=== PATIENT | female | born 1945 | race Hispanic/Latino ===

== ENCOUNTER → 2019-06-29 | Outpatient (CLI) | payer OTHER ==
[~2019-06-29] MED LIST: ASPI-555 PO; CALC-724 PO; CELE-84 PO; CEVI30CA7 PO; CHOL50009 PO; FERR325T29 PO; FOLI1TAB15 PO; GABA-529 PO; HYDR200T4 PO; LEVO100T12 PO; LOSA100T58 PO; METO25TA6 PO; MV-M1TAB46 PO; OMEP40CA13 PO; PRED5TAB PO; ROSU10TA28 PO; TEMA15CA PO; VITA-380 PO
== END | disposition home or self-care (01) ==
LOC: RAH 15:25
PROVIDERS: ATTEND Nurse Practitioner Adult Health
DX: M51.36 Other intervertebral disc degeneration, lumbar region (principal); M41.85 Other forms of scoliosis, thoracolumbar region
CPT/HCPCS: 72100

== ENCOUNTER → 2019-07-15 | Outpatient (CLI) | payer OTHER | END | disposition home or self-care (01) | LOC: RAH 12:44 | PROVIDERS: ATTEND Nurse Practitioner Adult Health | DX: M16.12 Unilateral primary osteoarthritis, left hip (principal); R10.2 Pelvic and perineal pain | CPT/HCPCS: 72170; 73502 ==

== ENCOUNTER → 2019-08-12 | Outpatient (CLI) | payer OTHER | END | disposition home or self-care (01) | LOC: RAH 11:16 | PROVIDERS: ATTEND Nurse Practitioner Adult Health | DX: J43.1 Panlobular emphysema (principal); J98.11 Atelectasis; J84.10 Pulmonary fibrosis, unspecified; J98.4 Other disorders of lung; K76.89 Other specified diseases of liver; M47.819 Spondylosis without myelopathy or radiculopathy, site unspecified; M41.80 Other forms of scoliosis, site unspecified; K44.9 Diaphragmatic hernia without obstruction or gangrene; K22.8 Other specified diseases of esophagus; J92.9 Pleural plaque without asbestos | CPT/HCPCS: 71250 ==

== ENCOUNTER → 2020-10-30 | Outpatient (CLI) | payer MEDICARE ==
[~2020-10-30] MED LIST changes: -ASPI-555 PO; +ASPI-556 PO; +CALC-1158 PO; -CALC-724 PO
== END | disposition home or self-care (01) ==
LOC: RAH 12:53
PROVIDERS: ATTEND Nurse Practitioner Adult Health
DX: I73.9 Peripheral vascular disease, unspecified (principal)
CPT/HCPCS: 93922

== ENCOUNTER → 2021-01-10 | Outpatient (CLI) | payer MEDICARE | END | disposition home or self-care (01) | LOC: RAH 12:52 | PROVIDERS: ATTEND Nurse Practitioner Adult Health | DX: R05 Cough (principal); K76.89 Other specified diseases of liver | CPT/HCPCS: 71250 ==

== ENCOUNTER → 2021-01-24 | Outpatient (CLI) | payer MEDICARE | END | disposition home or self-care (01) | LOC: RAH 09:06 | PROVIDERS: ATTEND Otolaryngology Plastic Surgery within the Head & Neck | DX: K22.5 Diverticulum of esophagus, acquired (principal); R22.9 Localized swelling, mass and lump, unspecified; K22.2 Esophageal obstruction | CPT/HCPCS: 74220 ==

== ENCOUNTER → 2021-12-24 | Outpatient (CLI) | payer OTHER ==
[~2021-12-24] MED LIST changes: -OMEP40CA13 PO; +OMEP40CA21 PO
== END ==
LOC: RAH 11:16
PROVIDERS: ATTEND Nurse Practitioner Adult Health
DX: Z13.6 Encounter for screening for cardiovascular disorders (principal); I51.5 Myocardial degeneration
CPT/HCPCS: 75571

== ENCOUNTER → 2023-02-21 | Outpatient (CLI) | payer MEDICARE ==
[~2023-02-21] MED LIST changes: -HYDR200T4 PO; +HYDR200T75 PO; -LOSA100T58 PO; +LOSA100T59 PO
== END | disposition home or self-care (01) ==
LOC: SHCH 12:46
PROVIDERS: ATTEND Internal Medicine Cardiovascular Disease
DX: I11.9 Hypertensive heart disease without heart failure (principal); I34.0 Nonrheumatic mitral (valve) insufficiency; I27.20 Pulmonary hypertension, unspecified
CPT/HCPCS: 93306

== ENCOUNTER → 2023-03-06 | Outpatient (CLI) | payer MEDICARE ==
[~2023-03-06] MED LIST changes: +REGADENOSON 0.4 MG/5 ML PF SYG IVP ONE
== END | disposition home or self-care (01) ==
LOC: SHCH 08:57
PROVIDERS: ATTEND Internal Medicine Cardiovascular Disease
DX: R06.02 Shortness of breath (principal); G89.29 Other chronic pain; M79.605 Pain in left leg; I10 Essential (primary) hypertension; E78.5 Hyperlipidemia, unspecified; Z79.899 Other long term (current) drug therapy
CPT/HCPCS: 78452; 96374; 93017; J2785; A9500 ×2

== ENCOUNTER 2023-04-08 08:51 | Day surgery (SDC) | payer MEDICARE ==
[2023-04-06 10:51] VITALS: BP 146/76; PULSE 76; RESP 18
[2023-04-06 10:54] LABS: BASOPHILS # (AUTO) 0.05 K/uL (0.00-0.20); EOSINOPHILS # (AUTO) 0.06 K/uL (0.00-0.70); EOSINOPHILS % (AUTO) 1.2 % (0.0-8.0); IMMATURE GRANULOCYTE ABSOLUTE 0.04 K/uL (0-1); LYMPHOCYTES # (AUTO) 1.9 K/uL (1.0-4.8); MEAN CORPUSCULAR HEMOGLOBIN 32.2 pg (27.0-33.0); MEAN CORPUSCULAR HGB CONC 33.1 g/dL (32.0-36.0); MEAN CORPUSCULAR VOLUME 97.2 fL (79-99); MONOCYTES # (AUTO) 0.6 K/uL (0.1-1.0); MONOCYTES % (AUTO) 11.2 % (3.0-13.0); NEUTROPHILS # (AUTO) 2.6 K/uL (1.8-7.7); NEUTROPHILS % (AUTO) 49.8 % (40.0-77.0); NUCLEATED RED BLOOD CELLS 0.4 % (0.0-0.19); PLATELET COUNT (AUTO) 247 K/uL (130-400); RED CELL DISTRIBUTION WIDTH 13.8 % (11.0-15.5); WHITE BLOOD COUNT (AUTO) 5.2 K/uL (4.8-10.8)
[2023-04-06 10:56] LABS: APPEARANCE,URINE CLEAR (CLEAR); BILIRUBIN,URINE NEGATIVE (NEGATIVE); COLOR,URINE YELLOW (YELLOW); GLUCOSE, URINE (UA) NEGATIVE (NEGATIVE); KETONES,URINE NEGATIVE (NEGATIVE); LEUKOCYTE ESTERASE ,URINE 75 Leu/uL (NEGATIVE); NITRATE,URINE NEGATIVE (NEGATIVE); OCCULT BLOOD,URINE NEGATIVE (NEGATIVE); PH,URINE 5.5 (5.0-8.0); PROTEIN,URINE 30 mg/dL (NEGATIVE); UROBILINOGEN,URINE 0.2 mg/dL (0.2-1.0)
[2023-04-06 11:07] LABS: INR 0.93 (0.85-1.15); PROTHROMBIN TIME 10.6 SEC (9.6-11.6)
[2023-04-06 11:08] LABS: PARTIAL THROMBOPLASTIN TIME 27.3 SEC (26.3-35.5)
[2023-04-06 11:12] LABS: B-TYPE NATRIURETIC PEPTIDE 48 pg/mL (0-100)
[2023-04-06 11:13] LABS: CREATININE 1.4 mg/dL (0.5-1.5)
[2023-04-06 11:16] LABS: ADD UA MICROSCOPIC YES
[2023-04-06 12:02] LABS: HYALINE CASTS, URINE 26-50 /LPF (0-1 /LPF); MUCUS,URINE RARE LPF (None Seen); SQUAMOUS EPITHELIAL CELL,UR RARE /HPF (0-2)
[~2023-04-08] VITALS: Ht 160 cm; Wt 71.9 kg
[2023-04-08] VITALS (11 sets, daily range): BP systolic 117–150; BP diastolic 49–75; PULSE 61–81; RESP 14–17
[~2023-04-08 08:51] MED LIST changes: +ACET-2743 PO; +AMLO2.5T4 PO; -ASPI-556 PO; +BIOT10005 PO; +CALC-1125 PO; -CALC-1158 PO; -CELE-84 PO; +CELE200C PO; +CHOL2000 PO; -CHOL50009 PO; +ELUX75TA PO; +ESCI-8 PO; -FERR325T29 PO; +FOLI0.4T6 PO; -FOLI1TAB15 PO; -GABA-529 PO; +GABA600T10 PO; +IRON PEG; -LEVO100T12 PO; +LEVO75CA5 PO; -LOSA100T59 PO; +METO-408 PO; -METO25TA6 PO; -MV-M1TAB46 PO; +OMEP-272 PO; -OMEP40CA21 PO; -PRED5TAB PO; +PREVAGEN PO; -REGADENOSON 0.4 MG/5 ML PF SYG IVP ONE; -TEMA15CA PO; +UPAD15TA PO; -VITA-380 PO; +VITA-395 PO; +VITA0.4T20 PO; +ZINC220T4 PO
[2023-04-08] MEDS ORDERED: IOPAMIDOL-370 100 ML VIAL IV ONE (08:52)
[2023-04-08] MEDS ORDERED: MIDAZOLAM HCL 1 MG/ML 2ML VIAL ONE ×2 (10:39→11:13)
[2023-04-08] MEDS ORDERED: LIDOCAINE HCL 400MG/20ML VIAL ONE (10:39)
[2023-04-08] MEDS ORDERED: MEPERIDINE-PF 25 MG/ML SYG ONE ×2 (10:39→11:13)
[2023-04-08] MEDS ORDERED: NITROGLYCERIN 50MG VIAL ONE (10:40)
[2023-04-08] MEDS ORDERED: NICARDIPINE 25MG INJ IV ONE (10:40)
[2023-04-08] MEDS ORDERED: HEPARIN 10,000 UNIT/10ML (1,000 UNIT/ML) VIAL ONE (10:40)
== END 2023-04-08 17:29 | disposition home or self-care (01) ==
LOC: DAH 08:51
PROVIDERS: ATTEND Internal Medicine Cardiovascular Disease
DX: Z01.810 Encounter for preprocedural cardiovascular examination (principal); I25.119 Atherosclerotic heart disease of native coronary artery with unspecified angina pectoris; I11.0 Hypertensive heart disease with heart failure; I50.32 Chronic diastolic (congestive) heart failure; E78.5 Hyperlipidemia, unspecified; M06.9 Rheumatoid arthritis, unspecified; K21.9 Gastro-esophageal reflux disease without esophagitis; E03.9 Hypothyroidism, unspecified; M81.0 Age-related osteoporosis without current pathological fracture; M35.00 Sjogren syndrome, unspecified; Z79.01 Long term (current) use of anticoagulants; Z80.9 Family history of malignant neoplasm, unspecified; Z90.710 Acquired absence of both cervix and uterus; Z90.49 Acquired absence of other specified parts of digestive tract; Z98.890 Other specified postprocedural states; Z98.51 Tubal ligation status; Z79.899 Other long term (current) drug therapy
CPT/HCPCS: 80048; 83880; 85025; 85610; 85730; 87088; 81001; 36415; 71045; 93005; 93458; C1894 ×2; C1760; Q9967; J3490 ×3; J2250 ×2; J2175 ×2; J1644; A4215; A4222; A4221; A4663; A4216; A4606; A4223 ×3; 99156; 99157

== ENCOUNTER → 2023-06-24 | Outpatient (CLI) | payer MEDICARE ==
[~2023-06-24] MED LIST changes: +ALBUTEROL 0.083% 2.5 MG/3 ML INH IH ONE
== END | disposition home or self-care (01) ==
LOC: RESP 08:37
PROVIDERS: ATTEND Internal Medicine Cardiovascular Disease
DX: R06.02 Shortness of breath (principal); R06.00 Dyspnea, unspecified
CPT/HCPCS: 94060

== ENCOUNTER → 2023-07-21 | Outpatient (CLI) | payer MEDICARE ==
[~2023-07-21] MED LIST changes: -ALBUTEROL 0.083% 2.5 MG/3 ML INH IH ONE
[2023-07-21 22:29] VITALS: PULSE 72; RESP 16
[2023-07-21 22:59] VITALS: PULSE 88; RESP 14
[2023-07-21 23:33] VITALS: PULSE 69; RESP 10
[2023-07-22] VITALS (11 sets, daily range): PULSE 69–94; RESP 10–18
== END | disposition home or self-care (01) ==
LOC: SLP 19:54
PROVIDERS: ATTEND Internal Medicine Cardiovascular Disease
DX: G47.33 Obstructive sleep apnea (adult) (pediatric) (principal)
CPT/HCPCS: 95810

== ENCOUNTER → 2023-07-28 | Outpatient (CLI) | payer MEDICARE ==
[2023-07-28 21:44] VITALS: PULSE 70; RESP 14
[2023-07-28 22:39] VITALS: PULSE 67; RESP 7
[2023-07-28 23:15] VITALS: PULSE 67; RESP 10
[2023-07-28 23:23] VITALS: PULSE 69; RESP 11
[2023-07-28 23:38] VITALS: PULSE 68; RESP 9
[2023-07-29] VITALS (11 sets, daily range): PULSE 68–74; RESP 9–27
== END | disposition home or self-care (01) ==
LOC: SLP 20:16
PROVIDERS: ATTEND Internal Medicine Cardiovascular Disease
DX: G47.33 Obstructive sleep apnea (adult) (pediatric) (principal)
CPT/HCPCS: 95811

== ENCOUNTER → 2024-08-23 | Outpatient (CLI) | payer MEDICARE ==
[~2024-08-23] MED LIST changes: -CELE200C PO; +CELE200C3 PO; +GABA-1405 PO; -GABA600T10 PO; -ROSU10TA28 PO; +ROSU10TA72 PO
--- NOTE | 2024-08-23 17:23 | HMCSR ---
APPROVED REPORT EXAM: Two-dimensional and M-mode echocardiogram with Doppler and color Doppler. INDICATION ICD: R06.00 Dyspnea 2D Dimensions RVDd3.0 cmLVEF(%)64.8 (>50%)LVED Vol(simp.)68.0 mL IVSd1.0 (0.7-1.1cm)FS(%)35 %LVES Vol(simp.)26.0 mL LVDd4.1 (3.8-5.6cm)Ao Root(2D)2.6 (2.0-3.7cm)LVEF(%, simp.)62 % PWd1.0 (0.7-1.1cm)LVOT diam1.8 (1.8-2.4cm)LA ESV INDEX (BP)35.97 mL/m2 LVDs2.6 (2.5-4.0cm)IVC diam1.8 cm Aortic Valve AoV Vmax1.5 m/Nerissa Peak GR9.0 mmHgLVOT Vmax1.2 m/s AoV VTI0.3 mAo Mean GR4.9 mmHgLVOT VTI0.27 m CHAMP (VMAX)2.1 cm2AVA (VTI) 2.1 cm2 Mitral Valve MV E Vmax82.5 cm/sDECEL Lydm766 ms MV A Vufb310.0 cm/sP 1/2 T63 ms E/A ratio0.8MVA (PHT)3.5 cm2 MR Max PG77 mmHg TDI E/E' Adziou24.3E/E' Qasfrrw29.6 Pulmonary Valve PV Vmax1.2 m/sPV VTI0.26 mPV Mean GR4 mmHg PV Peak GR5.4 mmHg Tricuspid Valve TR Vmax2.9 m/sRAP (EST) 8 wpEcETIZ45.6 mmHg TR Peak GR34.6 mmHg Left Ventricle Left ventricular cavity size is normal. There is normal LV segmental wall motion. There is normal lef t ventricular wall thickness. LVEF is 60-65%. No left ventricle thrombus noted on this study. Grade 1 diastolic dysfunction. Right Ventricle The right ventricle is normal size. The right ventricular systolic function is normal. Atria The left atrium is mildly dilated. The right atrium size is normal. Aortic Valve Aortic valve is trileaflet. Aortic valve leaflets are sclerotic but open well. Trace aortic regurgita tion. There is no aortic valvular stenosis. Mitral Valve Mitral valve leaflets are mildly sclerotic but open well. Mitral regurgitation is trace. There is no mitral valve stenosis. Tricuspid Valve The tricuspid valve leaflets appear normal. There is mild to moderate tricuspid regurgitation. Right ventricular systolic pressure is estimated at 40-50 mmHg. Pulmonic Valve Pulmonic valve is not well visualized. Great Vessels The aortic root is normal in size. IVC is dilated and collapses >50% with inspiration. Pericardium No pericardial effusion. Conclusion Left ventricular cavity size is normal. LVEF is 60-65%. Grade 1 diastolic dysfunction. The right ventricle is normal size. The left atrium is mildly dilated. Aortic valve is trileaflet. Aortic valve leaflets are sclerotic but open well. Trace aortic regurgitation. Mitral valve leaflets are mildly sclerotic but open well. Mitral regurgitation is trace. There is mild to moderate tricuspid regurgitation. Right ventricular systolic pressure is estimated at 40-50 mmHg. The aortic root is normal in size. IVC is dilated and collapses >50% with inspiration. No pericardial effusion.
== END | disposition home or self-care (01) ==
LOC: SHCH 11:01
PROVIDERS: ATTEND Internal Medicine Cardiovascular Disease
DX: I08.3 Combined rheumatic disorders of mitral, aortic and tricuspid valves (principal); R06.00 Dyspnea, unspecified
CPT/HCPCS: 93306

== ENCOUNTER → 2024-11-21 | Outpatient (CLI) | payer MEDICARE ==
[~2024-11-21] MED LIST changes: +GADOTERATE MEGLUMINE 10 MMOL/20 ML VIAL IV ONE
--- NOTE | 2024-11-21 16:09 | HMCIMG ---
MR ABDOMEN W/WO CON HISTORY: Liver cysts COMPARISON: CT from April 08, 2017 TECHNIQUE: MRI of the abdomen was performed utilizing multiple pulse sequences in axial, coronal and sagittal planes. Patient was given 13 cc of Clariscan through intravenous route. FINDINGS: No pleural effusion is seen bilaterally. There are right hepatic cysts near the dome of diaphragm with the largest measuring 17 mm. There is left hepatic cyst measuring 2 cm. Sludge material is seen in the gallbladder. No definite gallstone is seen. Common duct is dilated measuring 11 mm with sludge material. Small distal common duct stone suspected. Spleen, adrenal glands and pancreas are unremarkable. Both kidneys are seen without hydronephrosis. There are bilateral renal cortical scarring. There is no ascites. IMPRESSION: 1. , There is dilated with possible small distal common duct stone. Hepatic cysts. No ascites.
== END | disposition home or self-care (01) ==
LOC: RAH 14:02
PROVIDERS: ATTEND Internal Medicine Gastroenterology
DX: K76.89 Other specified diseases of liver (principal); K82.8 Other specified diseases of gallbladder
CPT/HCPCS: 74183; A9575

== ENCOUNTER 2025-04-24 08:50 | Day surgery (SDC) | payer MEDICARE ==
[2025-04-24] VITALS (18 sets, daily range): BP systolic 134–185; BP diastolic 39–80; PULSE 58–74; RESP 15–18; TEMP 97.1–97.6
[~2025-04-24] VITALS: Ht 157.5 cm; Wt 59.0 kg
[~2025-04-24 08:50] MED LIST changes: -CELE200C3 PO; -GADOTERATE MEGLUMINE 10 MMOL/20 ML VIAL IV ONE; +IOHEXOL-350 50ML VIAL IV ONE; -IRON PEG; +IRON PO; -LEVO75CA5 PO; +LEVO75CA6 PO
[2025-04-24] MEDS: 0.9%NACL 1000ML 1,000 ML IV ONE (10:48)
[2025-04-24] MEDS: INDOMETHACIN 100 MG SUPP.RECT RC ONE (12:47)
--- NOTE | 2025-04-27 16:14 | HMCIMG ---
ERCP BILI/PANC DUCT HISTORY: CALCULUS OF BILE DUCT WITHOUT CHOLANGITIS,ABN FINDINGS ON DIAGNOSTIC IMAGIN TECHNIQUE: ERCP BILI/PANC DUCT FINDINGS/IMPRESSION: Fluoroscopic image/s obtained for procedure documentation. Please see operative report for more details. 15 cc of Omnipaque 350 was injected Fluoroscopy time 3.58 minutes
== END 2025-04-24 15:00 | disposition home or self-care (01) ==
LOC: DAH 08:50
PROVIDERS: ATTEND Internal Medicine Gastroenterology
DX: K80.50 Calculus of bile duct without cholangitis or cholecystitis without obstruction (principal); R93.2 Abnormal findings on diagnostic imaging of liver and biliary tract; K83.8 Other specified diseases of biliary tract; R93.5 Abnormal findings on diagnostic imaging of other abdominal regions, including retroperitoneum; I12.9 Hypertensive chronic kidney disease with stage 1 through stage 4 chronic kidney disease, or unspecified chronic kidney disease; N18.9 Chronic kidney disease, unspecified; K21.9 Gastro-esophageal reflux disease without esophagitis; M19.90 Unspecified osteoarthritis, unspecified site; M35.00 Sjogren syndrome, unspecified; M06.9 Rheumatoid arthritis, unspecified; E78.5 Hyperlipidemia, unspecified; F41.9 Anxiety disorder, unspecified; F32.A Depression, unspecified; R77.2 Abnormality of alphafetoprotein; K76.0 Fatty (change of) liver, not elsewhere classified; K22.4 Dyskinesia of esophagus; K58.0 Irritable bowel syndrome with diarrhea; K57.30 Diverticulosis of large intestine without perforation or abscess without bleeding; K58.9 Irritable bowel syndrome, unspecified; Z88.8 Allergy status to other drugs, medicaments and biological substances; Z79.82 Long term (current) use of aspirin; Z98.51 Tubal ligation status; Z80.0 Family history of malignant neoplasm of digestive organs; Z79.899 Other long term (current) drug therapy
CPT/HCPCS: 43264; 43274; 43273; 74328; J7030; J0360; J2704; J2405; Q9967; C1876; A4620; A4215; C1769; C1773; 74330; J3490

== ENCOUNTER → 2025-06-27 | Outpatient (CLI) | payer MEDICARE ==
[~2025-06-27] MED LIST changes: -ACET-2743 PO; +IOHEXOL 350 MG/ML 100ML INFUS..BTL IV ONE; -IOHEXOL-350 50ML VIAL IV ONE; -ROSU10TA72 PO; +ROSU10TA98 PO
--- NOTE | 2025-06-28 15:38 | CARDIOLOGY ---
RAD REPORT: CORNARY CT ANGIO RADIOLOGY REPORT: CORONARY CT ANGIOGRAPHY DATE: Jun 27, 2025 QUALITY: Excellent CLINICAL HISTORY AND INDICATION: [ chest pain] TECHNIQUE: After obtaining a preliminary deputy building guard image, contrast imaging performed on an [employer] [id number] scanner. A dedicated, limited window, coronary imaging protocol was used, with single breath-hold, retrospective ECG gating, and automated arrhythmia rejection. 100 cc of low osmolar contrast agent: Omnipaque 350 was delivered via a 18-gauge IV catheter in the right antecubital fossa, using a power injector and followed by 60 cc of normal saline bolus as a chaser. Collimated images were reformatted at 0.5 mm intervals, and sent to an offline independent workstation for interpretation, using 3D anatomic reconstructions: Curved multiplanar reconstructions, maximum intensity projections, and multiplanar imaging. 5 mg IV metoprolol was administered prior to scanning. 0.8 mg SL nitroglycerin was given. CORONARY ARTERY DESCRIPTIONS: The coronary arteries arise in normal position. Left main coronary artery: Normal caliber vessel that bifurcates into the LAD and LCx. No stenosis. Left anterior descending coronary artery: Normal caliber vessel and gives rise to diagonal and septal branches. No stenosis. Left circumflex coronary artery: Normal caliber, nondominant and gives rise to two OM branches. There is calcified plaque in the proximal LCx with 20-30% stenosis. Right coronary artery: Large, dominant vessel giving rise to the PL and PDA branches. No stenosis. CAD-RADs: 2, mild non-obstructive CAD. Thoracic Aorta: Normal diameter. Aura Bales MD Cardiovascular Disease [facility] AURA BALES MD Jun 28, 2025 15:38
== END | disposition home or self-care (01) ==
LOC: RAH 08:57
PROVIDERS: ATTEND Internal Medicine Cardiovascular Disease
DX: I25.10 Atherosclerotic heart disease of native coronary artery without angina pectoris (principal); R06.02 Shortness of breath
CPT/HCPCS: 75574; J3490; Q9967